=== PATIENT | male | born 1995 | race Caucasian/White ===

== ENCOUNTER 2017-02-20 21:00 | Emergency (ER) | payer OTHER ==
[2017-02-21 01:30] LABS: Hematocrit 40 % (42-52); Hemoglobin 12.7 g/dl (14.0-18.0); Mean Corpuscular HGB Conc 32 g/dl (31-36); Mean Corpuscular Hemoglobin 19 pg (27-31); Mean Corpuscular Volume 61 fL (80-94); Mean Platelet Volume 9 um3 (7.4-10.4); Red Blood Count 6.62 10^6/ul (4.0-5.4); Red Cell Distribution Width 15 % (10.5-15); White Blood Count 10.5 10^3/ul (3.5-10.8)
[2017-02-21 01:37] LABS: Add Diff/Slide Review? Slide Review Added; Comments Flag Yes
[2017-02-21 01:45] LABS: ALT 15 U/L (7-52); AST 19 U/L (13-39); Albumin 4.7 g/dL (3.2-5.2); Alkaline Phosphatase 43 U/L (34-104); Anion Gap 6 mmol/L (2-11); BUN/Creatinine Ratio 18.5 (8-20); Blood Urea Nitrogen 17 mg/dL (6-24); C Reactive Protein < 1.00 mg/L (< 5.00); CO2 Carbon Dioxide 28 mmol/L (22-32); Calcium 9.4 mg/dL (8.6-10.3); Chloride 103 mmol/L (101-111); EGFR African American 131.1 (>60); Globulin 2.6 g/dL (2-4); Glucose 92 mg/dL (70-100); Lipase 10 U/L (11.0-82.0); Potassium 3.9 mmol/L (3.5-5.0); Sodium 137 mmol/L (133-145); Total Protein 7.3 g/dL (6.4-8.9)
--- NOTE | 2017-02-21 02:09 | ED ---
Abdominal Pain/Male - HPI Summary HPI Summary: Patient presents to ED with RUQ pain and mild nausea x 3 hours which has been constant and rated 8/10, worse with palpation. Does not radiate. Denies urinary symptoms, SOB, chest pain, back pain, vomiting, diarrhea or constipation. Last BM yesterday morning. Has never had a pain like this before. Pain is an ache, not worse or better after eating. Worse with orthostasis position, supine position improved. Last PO intake 2 hours prior to the onset of the pain. Denies abdominal surgeries, significant health history or allergies. Takes no medications. UTD on immunizations. He is a student, non- smoker, generally healthy and PCP is [facility]. - History of Current Complaint Chief Complaint: EDAbdPain Stated Complaint: ABD PAIN Time Seen by Provider: 02/21/17 00:06 Hx Obtained From: Patient Onset/Duration: Sudden Onset Timing: Constant Severity Initially: Moderate Severity Currently: Moderate Pain Intensity: 6 Pain Scale Used: 0-10 Numeric Location: Discrete At: RUQ Radiates: No Character: Dull, Cramping Aggravating Factor(s): Nothing Alleviating Factor(s): Position - upright position worse, supine position improved Associated Signs And Symptoms: Positive: Negative - Risk Factors Testicular Torsion: Negative Cardiac Risk Factors: Negative - Allergies/Home Medications Allergies/Adverse Reactions: Allergies Allergy/AdvReac Type Severity Reaction Status Date / Time No Known Allergies Allergy Verified 02/20/17 21:25 PMH/Surg Hx/FS Hx/Imm Hx Previously Healthy: Yes Infectious Disease History: No Infectious Disease History: Denies: Traveled Outside the [place] in Last 30 Days - Social History Occupation: Unemployed, Student Lives: With Family Alcohol Use: Occasionally Hx Substance Use: No Substance Use Type: Reports: None Hx Tobacco Use: No Smoking Status (MU): Never Smoked Tobacco Do You Chew or Dip Tobacco: No Review of Systems Constitutional: Negative Cardiovascular: Negative Respiratory: Negative Positive: Abdominal Pain, Nausea Positive: no symptoms reported, see HPI Musculoskeletal: Negative Skin: Negative Neurological: Negative Psychological: Normal All Other Systems Reviewed And Are Negative: Yes Physical Exam Triage Information Reviewed: Yes Vital Signs On Initial Exam: Initial Vitals Temp Pulse Resp BP Pulse Ox 98.6 F 94 16 159/80 97 02/20/17 21:25 02/20/17 21:25 02/20/17 21:25 02/20/17 21:25 02/20/17 21:25 Appearance: Positive: Well-Appearing, Well-Nourished Skin: Positive: Warm, Skin Color Reflects Adequate Perfusion Head/Face: Positive: Normal Head/Face Inspection Eyes: Positive: EOMI, MARTIN, Conjunctiva Clear Neck: Positive: Supple, Nontender, No Lymphadenopathy Respiratory/Lung Sounds: Positive: Clear to Auscultation, Breath Sounds Present Cardiovascular: Positive: Normal, RRR, Pulses are Symmetrical in both Upper and Lower Extremities Abdomen Description: Positive: Soft, Other: - + murphys, negative rovsings Musculoskeletal: Positive: Strength/ROM Intact Neurological: Positive: Alert, Oriented to Person Place, Time, CN Intact II-III , Speech Normal Psychiatric: Positive: Normal AVPU Assessment: Alert - Erin Coma Scale Coma Scale Total: 15 Diagnostics - Vital Signs Vital Signs Temp Pulse Resp BP Pulse Ox 02/21/17 01:30 76 114/70 97 02/21/17 01:00 73 117/55 97 02/21/17 00:30 80 129/75 98 02/21/17 00:27 79 97 02/21/17 00:23 83 98 02/21/17 00:21 104/70 02/20/17 21:27 98.6 F 94 16 159/80 98 02/20/17 21:25 98.6 F 94 16 159/80 97 - Laboratory Lab Results: Lab Results 02/21/17 02/21/17 Range/Units 01:10 01:10 WBC 10.5 (3.5-10.8) 10^3/ul RBC 6.62 H (4.0-5.4) 10^6/ul Hgb 12.7 L (14.0-18.0) g/dl Hct 40 L (42-52) % MCV 61 L (80-94) fL MCH 19 L (27-31) pg MCHC 32 (31-36) g/dl RDW 15 (10.5-15) % Plt Count 187 (150-450) 10^3/ul MPV 9 (7.4-10.4) um3 Neut % (Auto) 75.0 (38-83) % Lymph % (Auto) 18.2 L (25-47) % [place] % (Auto) 5.4 (1-9) % Eos % (Auto) 0.6 (0-6) % Baso % (Auto) 0.8 (0-2) % Absolute Neuts (auto) 7.9 H (1.5-7.7) 10^3/ul Absolute Lymphs (auto) 1.9 (1.0-4.8) 10^3/ul Absolute Monos (auto) 0.6 (0-0.8) 10^3/ul Absolute Eos (auto) 0.1 (0-0.6) 10^3/ul Absolute Basos (auto) 0.1 (0-0.2) 10^3/ul Absolute Nucleated RBC 0.01 10^3/ul Nucleated RBC % 0.1 Sodium 137 (133-145) mmol/L Potassium 3.9 (3.5-5.0) mmol/L Chloride 103 (101-111) mmol/L Carbon Dioxide 28 (22-32) mmol/L Anion Gap 6 (2-11) mmol/L BUN 17 (6-24) mg/dL Creatinine 0.92 (0.67-1.17) mg/dL Est GFR ( Amer) 131.1 (>60) Est GFR (Non-Af Amer) 102.0 (>60) BUN/Creatinine Ratio 18.5 (8-20) Glucose 92 (70-100) mg/dL Calcium 9.4 (8.6-10.3) mg/dL Total Bilirubin 1.50 H (0.2-1.0) mg/dL AST 19 (13-39) U/L ALT 15 (7-52) U/L Alkaline Phosphatase 43 (34-104) U/L C-Reactive Protein < 1.00 (< 5.00) mg/L Total Protein 7.3 (6.4-8.9) g/dL Albumin 4.7 (3.2-5.2) g/dL Globulin 2.6 (2-4) g/dL Albumin/Globulin Ratio 1.8 (1-3) Lipase 10 L (11.0-82.0) U/L Result Diagrams: 02/21/17 01:10 02/21/17 01:10 Lab Statement: Any lab studies that have been ordered have been reviewed, and results considered in the medical decision making process. Abdominal Pain Fem Course/Dx - Course Course Of Treatment: Patient sent to US of gallbladder d/t RUQ pain. Hutchinson's + , rovsing -, no pain over mcburneys point, no gaurding or rebound appreciated. Labs reveal high RBC count and low Hb, HCT, MCV, MCH. 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 No previous labs on file to compare. US negative for any findings. Will defer at this time for a CT scan and patient agrees. OK to discharge home. Return precautions given. - Diagnoses Differential Diagnosis/HQI/PQRI: Bowel Obstruction, Gall Bladder Disease, Other - RUQ pain, pain of unknown origin, constipation, appendicitis Provider Diagnoses: Abdominal pain Discharge - Discharge Plan Condition: Stable Disposition: HOME Patient Education Materials: Acute Abdominal Pain (ED) Referrals: Donald Kline [Primary Care Provider] - Additional Instructions: Follow up with Critical access hospital as needed If you develop any worsening symptoms, return to the ED immediately. Nausea, vomiting or worsening abdominal pain or fever - come back immediately. Rest and drink plenty of fluids.
[2017-02-21 03:20] VITALS: BP 118/67
--- NOTE | 2017-02-21 07:54 | RAD ---
HISTORY: Right upper quadrant pain COMPARISONS: None TECHNIQUE: Multiple transverse and longitudinal ultrasound images were obtained of the right upper quadrant of the abdomen using grayscale and color Doppler imaging. FINDINGS: LIVER: The liver is normal in shape, size, contour, and echogenicity. There are no focal parenchymal masses. There is normal hepatopedal flow of the portal vein on Doppler imaging. BILIARY TREE: There is no intrahepatic or extrahepatic biliary dilatation. The common duct measures 0.3 cm. GALLBLADDER: The gallbladder is well-visualized. There is no cholelithiasis, gallbladder wall thickening, pericholecystic fluid, or sonographic Hutchinson sign. PANCREAS: The head of the pancreas is unremarkable. The tail of the pancreas is not well visualized secondary to overlying bowel gas. RIGHT KIDNEY: The right kidney is normal in shape, size, contour, and echogenicity. There is no hydronephrosis or nephrolithiasis. The right kidney measures 11 x 3.6 x 5.2 cm. AORTA AND IVC: The aorta and IVC are unremarkable. FLUID: There are no pleural effusions. There is no free fluid within the hepatorenal recess. OTHER FINDINGS: None. IMPRESSION: NO ACUTE SONOGRAPHIC PATHOLOGY OF THE VISUALIZED PORTION OF THE ABDOMEN.
== END 2017-02-21 03:24 | disposition home or self-care (01) ==
LOC: ED 21:00
DX: R10.11 Right upper quadrant pain (principal); R11.0 Nausea
CPT/HCPCS: 36415; 76705; 80053; 83020; 83690; 85025; 86140; 99283